=== PATIENT | female | born 1995 ===

== ENCOUNTER 2025-04-25 12:10 | Outpatient (CLI) | payer OTHER | END 2025-04-25 12:15 | disposition home or self-care (01) | LOC: PRENATAL 12:10 | PROVIDERS: ATTEND Obstetrics & Gynecology Maternal & Fetal Medicine | DX: O26.843 Uterine size-date discrepancy, third trimester (principal); Z14.8 Genetic carrier of other disease; Z3A.15 15 weeks gestation of pregnancy ==